=== PATIENT | female | born 1980 | race Caucasian/White ===

== ENCOUNTER 2016-09-30 11:52 | Emergency (ER) | payer MEDICAID ==
[2016-09-30 12:18] VITALS: BP 140/81; PULSE 91; RESP 16; TEMP 98.4; O2SAT 96
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
[2016-09-30] MEDS ORDERED: IBUPROFEN 600 MG TAB PO ONE (12:54)
[2016-09-30 13:08] LABS: COLOR YELLOW; LEUKOCYTE ESTERASE,URINE TRACE (NEGATIVE); NITRITE,URINE NEGATIVE (NEGATIVE); PH,URINE 5.5 (5.0-7.5)
[2016-09-30 13:20] LABS: BACTERIA 1+ /hpf (NONE SEEN)
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
[2016-10-01 12:28] LABS: CHLAMYDIA AMPLIFICATION GENPRB NEGATIVE (NEGATIVE)
== END 2016-09-30 14:47 | disposition home or self-care (01) ==
LOC: CED 11:52
DX: M54.16 Radiculopathy, lumbar region (principal); I10 Essential (primary) hypertension; F41.9 Anxiety disorder, unspecified; F17.210 Nicotine dependence, cigarettes, uncomplicated
CPT/HCPCS: 72100-PO; 81003-PO; 81015-PO; 81025-PO; 99214-PO; G0463-PO